=== PATIENT | female | born 1985 | race Caucasian/White ===

== ENCOUNTER 2020-02-05 01:21 | Emergency (ER) | payer OTHER ==
[~2020-02-05] VITALS: Ht 162.6 cm; Wt 127.0 kg
--- NOTE | 2020-02-05 02:02 | NUR ---
ER MD at bedside for patient evaluation
--- NOTE | 2020-02-05 02:20 | NUR ---
Patient discharged to home in stable conditon. Written and verbal after care instructions given. Patient verbalizes understanding of instructions. Ambulated from ER with stable gait. All belongings with patient. VSS
[2020-02-05 02:22] VITALS: BP 127/82
== END 2020-02-05 02:30 | disposition home or self-care (01) ==
LOC: ER 01:31
DX: J06.9 Acute upper respiratory infection, unspecified (principal); F17.210 Nicotine dependence, cigarettes, uncomplicated
CPT/HCPCS: A4663